=== PATIENT | male | born 1930 | race Caucasian/White ===

== ENCOUNTER 2018-05-18 20:03 | Inpatient (IN) | payer MEDICARE, MEDICAID ==
[2018-05-18] MEDS ORDERED: Vancomycin HCl 1.5 GM in Sodium Chloride 0.9% 250 ML 300 ML IVPB SCH (20:45)
[2018-05-18] MEDS ORDERED: Azithromycin 500 MG VIAL ONE (20:56)
[2018-05-18 20:57] LABS: Lactic Acid 2.7 mmol/L (0.5-2.2)
[2018-05-18] MEDS ORDERED: Cefepime 2 GM in Sodium Chloride 0.9% 100 ML IVPB SCH (21:00)
[2018-05-18] MEDS ORDERED: Acetaminophen 325 MG TAB PO PRN (23:58)
--- NOTE | 2018-05-19 02:33 | HP ---
CHIEF COMPLAINT: Patient is a half-way resident who was sent for hypoxia and also worsening alte red mental status. HISTORY OF PRESENT ILLNESS: Patient is an 88-year-old male who is a DNR, who presents from a half-way with worsening mentation and hypoxia. Patient is unable to provide me with any history. All t he history is being extracted from the charts. Patient initially was taken to [facility] for possi ble sepsis. He was given breathing treatment and he was also given Levaquin and was transported here for further management. PAST MEDICAL HISTORY: He has a history of CHF, COPD, CVA, dementia, osteoarthritis, chronic kidney d isease, thrombocytopenia, melanoma, bilateral broken hips at different times, hypokalemia, chronic pa in, deconditioning, unsteady gait, anxiety and depression. PAST SURGICAL HISTORY: He has a pacemaker. He has had a left hip surgery. He has had orthopedic sheriff rgery, he has left hip ORIF, pacemaker placement. SOCIAL HISTORY: Denied. No history of alcohol or drug use or smoking has been noted. ALLERGIES: He has multiple allergies to AGGRENOX, ASPIRIN, FENTANYL, NIACIN, PENICILLIN, VICODIN. REVIEW OF SYSTEMS: Unable to obtain. MEDICATIONS: He takes gabapentin 300 mg daily, Zoloft 100 mg daily, midodrine 5 mg daily, memantine unknown dose, oxybutynin 5 mg daily. PHYSICAL EXAMINATION: VITAL SIGNS: Upon coming to the ER, temperature of 99.0, his pulse is 93, blood pressure of 91/83, o xygen was 96. GENERAL: He is easily arousable, but not oriented x3 at all. CARDIOVASCULAR: S1, S2 present. No murmurs, rubs, or gallops. LUNGS: He has got mild rhonchi bilaterally. ABDOMEN: Bowel sounds are present x2. Unable to appreciate any reproducible pain. Patient had no g rimace on palpating the abdomen. EXTREMITIES: No edema. Pedal pulses are present x2. SKIN: No abrasion noted. NEUROLOGICAL: Patient is not easily arousable, but not oriented at all. LABORATORY DATA: Are as of the following WBCs of 13.9, hemoglobin of 13.3, hematocrit 40.5, platelet s of 111. Chemistry: He has a sodium of 147, potassium of 3.2, chloride of 111. His bicarbonate is 20 and his anion gap is 19. His creatinine is 1.86. Total bilirubin is 1.3. Lactic acid initially was 4 now is 2.7. He also had a chest x-ray, which indicated possible free intraperitoneal air vers us loop of bowel beneath the right hemidiaphragm. CT abdomen and pelvis was also done, which indicat ed that he does have a small segmental area of focal small bowel dilation; however, an extensive colo tushar diverticulosis, but no evidence of free intraperitoneal air and he has numerous small nonobstruct ing urinary calices, no evidence of diverticulitis was noted. There were some dilated small bowel in his right lower quadrant of the abdomen. ASSESSMENT AND PLAN: Patient is a very pleasant 88-year-old male who presents to the hospital with h ypoxia and altered mental status. 1. Sepsis. Chest x-ray possibly has indicate some pulmonary vascular congestion and appears a littl e bit possible infiltrate on the right lower, unable to appreciate the left lower lung area. Also, u rinalysis indicated which appears to be mild urinary tract infection, leukocytosis or small. No squa mous epithelial cells. WBCs were between 4-6. We will continue IV hydration gently. Patient is a h igh risk for worsening pulmonary vascular congestion. We will be gentle also we will start patient o n broad spectrum antibiotics, will renally dose it, also patient's code status is DNR. 2. We will get PT and OT to see the patient. 3. Elevated leukocytosis, this could be secondary to his underlying pneumonia or urinary tract infec tion. We will continue to monitor. 4. Hypokalemia. We will replace potassium. 5. Hypernatremia, this is most likely due to either dehydration. We will start patient on some D5 w ater with some sodium chloride, given his low blood pressure. 6. Lactic acidosis. This most likely secondary to his underlying pneumonia, we will continue to mon itor.
[2018-05-19 05:15] LABS: Anion Gap 10 mmol/L (10-20); BUN (Urea Nitrogen) 31 mg/dL (8.4-25.7); Calc. Creatinine Clearance 32 mL/min (70-130); Calcium 8.6 mg/dL (7.8-10.44); Carbon Dioxide 21 mmol/L (23-31); Chloride 118 mmol/L (98-107); Estimated GFR-MDRD 50; Glucose 147 mg/dL (83-110); Potassium 3.8 mmol/L (3.5-5.1); Sodium 145 mmol/L (136-145)
[2018-05-19 06:30] LABS: #Lymphocytes 0.7 thou/uL (1.20-3.40); #Monocytes 0.6 thou/uL (0.11-0.59); #Neutrophils 7.6 thou/uL (1.40-6.50); %Basophils 0.2 % (0.0-1.0); %Eosinophils 0.1 % (0.0-10.0); %Lymphocytes 7.9 % (21.0-51.0); %Monocytes 6.7 % (0.0-10.0); %Neutrophils 85.2 % (42.0-75.0); Mean Corpuscular HGB CONC 33.3 g/dL (32.0-36.0); Mean Corpuscular Hemoglobin 32.3 pg (27.0-31.0); Mean Platelet Volume 9.4 fL (7.4-10.4); Platelet Count 93 thou/uL (130-400); RBC Distribution Width 12.8 % (11.5-14.5); Red Blood Cell (RBC) Count 3.71 mill/uL (4.70-6.10)
[2018-05-19] MEDS ORDERED: hydrALAZINE 20 MG/ML VIAL SLOW IVP SCH (08:15)
[2018-05-19] MEDS: Heparin 5,000 UNITS/ML VIAL SC SCH ×3 (08:31→20:22)
--- NOTE | 2018-05-19 13:18 | PDOC.PN ---
- Subjective Encounter Start Date: 05/19/18 Encounter Start Time: 09:45 -: old records requested/rev Pt seen and examined, chart reviewed i its entirety. this is my first visit with this patient Follow up for Aspiration pneumonia, severe spsis, dementia. no family currently at bedside. Pt aphasic and demented. No acute events overnight, afevrile. thirsty. Speech Rx saw earlier, coughed after every cinsistency, recommended NPO today, re-eval tomorow ROS not obtianable - Objective Resuscitation Status: Resuscitation Status FULL:Full Resuscitation MAR Reviewed: Yes Vital Signs & Weight: Vital Signs (12 hours) Temp Pulse Resp BP BP Pulse Ox 05/19/18 11:11 98.2 F 62 22 H 125/74 05/19/18 09:25 66 141/72 H 05/19/18 08:28 61 215/95 H 05/19/18 08:00 97.8 F 61 20 215/95 H 92 L 05/19/18 04:41 98.0 F 61 20 92 L 05/19/18 04:00 98.0 F 61 20 140/73 93 L 05/19/18 01:59 98.2 F 83 24 H 164/79 H 92 L Weight Admit Weight 132 lb Weight 132 lb I&O: 05/18/18 05/19/18 05/20/18 06:59 06:59 06:59 Output Total 200 Balance -200 Result Diagrams: 05/19/18 04:45 05/19/18 04:45 Radiology Reviewed by me: Yes EKG Reviewed by me: Yes Phys Exam - Physical Examination Constitutional: NAD HEENT: PERRLA, moist MMs, sclera anicteric, oral pharynx no lesions Neck: no nodes, no JVD, supple, full ROM Respiratory: no wheezing, no rales, no rhonchi, clear to auscultation bilateral Cardiovascular: RRR, no significant murmur, no rub Gastrointestinal: soft, non-tender, no distention, positive bowel sounds Musculoskeletal: no edema Neurological: non-focal Lymphatic: no nodes Psychiatric: normal affect Skin: no rash, normal turgor, cap refill <2 seconds Dx/Plan (1) Healthcare associated bacterial pneumonia Code(s): J15.9 - UNSPECIFIED BACTERIAL PNEUMONIA Status: Acute Comment: Clinda, Cefepime, Levoflox, repeat CXR in AM (2) Dysphagia Code(s): R13.10 - DYSPHAGIA, UNSPECIFIED Status: Acute Qualifiers: Dysphagia type: unspecified Qualified Code(s): R13.10 - Dysphagia, unspecified Comment: per ST, NPO now, recheck in AM. (3) Aspiration into airway Code(s): T17.908A - UNSP FB IN RESP TRACT, PART UNSP CAUSING OTH INJURY, INIT Status: Acute Qualifiers: Encounter type: initial encounter Qualified Code(s): T17.908A - Unspecified foreign body in respiratory tract, part unspecified causing other injury, initial encounter (4) Parkinson's disease Code(s): G20 - PARKINSON'S DISEASE Status: Chronic (5) Dementia Code(s): F03.90 - UNSPECIFIED DEMENTIA WITHOUT BEHAVIORAL DISTURBANCE Status: Chronic Qualifiers: Dementia type: Alzheimer's disease Alzheimer's disease onset: unspecified onset Dementia behavioral disturbance: without behavioral disturbance Qualified Code(s): G30.9 - Alzheimer's disease, unspecified; F02.80 - Dementia in other diseases classified elsewhere without behavioral disturbance; F02.80 - Dementia in other diseases classified elsewhere without behavioral disturbance; F02.80 - Dementia in other diseases classified elsewhere without behavioral disturbance (6) Chronic kidney disease, stage III (moderate) Status: Chronic - Plan cont current plan of care, continue antibiotics, PT/OT, speech therapy, DVT proph w/lovenox * .
--- NOTE | 2018-05-19 13:24 | PDOC.EVN ---
Event Note - Event Note Event Note: Met with family from 12:20-12:42. Step daughter with non-medical POA, step-son from [place], brother in law and his non-related present. joined by pt grand-daugter later. Discussed code status, pt DNR at OR, discussed currnet disease process and prognosis, reocmmended PC eval. Discussed dysphagia. Pt is DNR/DNI, no shocks and no feeding tubes. plan to return to OR when treatment here complete. biological children X 3 in the [facility] area and barely involved, PT Step daughter present has DPOA but not medical Advanced care planning discussed for 22 minutes
[2018-05-19 13:47] LABS: Lactic Acid 0.7 mmol/L (0.5-2.2)
[2018-05-19] MEDS: Cefepime 1 GM in Sodium Chloride 0.9% 100 ML IVPB SCH (20:22)
[2018-05-19] MEDS ORDERED: Vancomycin HCl 750 MG in Sodium Chloride 0.9% 250 ML 250 ML IVPB SCH (23:00)
[2018-05-19] MEDS ORDERED: Dextrose 5 % And 0.9 % NaCl 1,000 ML IV SCH (23:15)
[2018-05-20 05:43] LABS: Anion Gap 14 mmol/L (10-20); BUN (Urea Nitrogen) 30 mg/dL (8.4-25.7); Calc. Creatinine Clearance 36 mL/min (70-130); Calcium 9.1 mg/dL (7.8-10.44); Carbon Dioxide 19 mmol/L (23-31); Chloride 118 mmol/L (98-107); Estimated GFR-MDRD 56; Glucose 111 mg/dL (83-110); Potassium 3.8 mmol/L (3.5-5.1); Sodium 147 mmol/L (136-145)
[2018-05-20 05:54] LABS: #Eosinphils 0.1 thou/uL (0.0-0.7); #Lymphocytes 1.4 thou/uL (1.20-3.40); #Monocytes 0.7 thou/uL (0.11-0.59); #Neutrophils 7.8 thou/uL (1.40-6.50); %Basophils 0.2 % (0.0-1.0); %Eosinophils 0.5 % (0.0-10.0); %Lymphocytes 13.9 % (21.0-51.0); %Monocytes 7.1 % (0.0-10.0); %Neutrophils 78.3 % (42.0-75.0); Hemoglobin 13.2 g/dL (14.0-18.0); Mean Corpuscular Hemoglobin 32.5 pg (27.0-31.0); Mean Corpuscular Volume 95.6 fL (78.0-98.0); Mean Platelet Volume 8.5 fL (7.4-10.4); Platelet Count 119 thou/uL (130-400); RBC Distribution Width 12.5 % (11.5-14.5); Red Blood Cell (RBC) Count 4.08 mill/uL (4.70-6.10)
[2018-05-20] MEDS ORDERED: Haloperidol Lactate 5 MG/ML VIAL IM SCH (11:15)
[2018-05-20] MEDS: Heparin 5,000 UNITS/ML VIAL SC SCH (12:48)
--- NOTE | 2018-05-20 14:00 | PDOC.PN ---
- Subjective Encounter Start Date: 05/20/18 Encounter Start Time: 13:58 Subjective: pt agitated and trying to get OOB.RN & tech at bedside -: Pt confused and mumbling incoherently - Objective Resuscitation Status: Resuscitation Status DNR:Do Not Resuscitate MAR Reviewed: Yes Vital Signs & Weight: Vital Signs (12 hours) Temp Pulse Pulse Pulse Resp BP BP 05/20/18 09:54 61 63 171/99 H 176/75 H 05/20/18 07:15 98.4 F 58 L 20 05/20/18 04:00 96.7 F L 60 26 H BP Pulse Ox 05/20/18 09:54 05/20/18 07:15 126/72 94 L 05/20/18 04:00 172/80 H 96 Weight Admit Weight 132 lb Weight 131 lb 11.2 oz I&O: 05/19/18 05/20/18 05/21/18 06:59 06:59 06:59 Intake Total 515 Output Total 1500 Balance -985 Result Diagrams: 05/20/18 05:20 05/21/18 04:03 Additional Labs: Microbiology 05/18/18 17:00 Venous blood - Left Arm Blood Culture - Preliminary Specimen has been received and culture in progress. No Growth to date. 05/18/18 16:50 Venous blood - Right Arm Blood Culture - Preliminary Specimen has been received and culture in progress. No Growth to date. labs reviewed Phys Exam - Physical Examination agitated HEENT: sclera anicteric, oral pharynx no lesions dry mucosa Neck: no nodes, no JVD Respiratory: no wheezing, no rales, no rhonchi Cardiovascular: RRR, no significant murmur Gastrointestinal: soft, no distention, positive bowel sounds Musculoskeletal: no edema, pulses present Neurological: moves all 4 limbs Deviation from normal: agitated Skin: no rash Dx/Plan (1) Healthcare associated bacterial pneumonia Code(s): J15.9 - UNSPECIFIED BACTERIAL PNEUMONIA Status: Acute Comment: Clinda, Cefepime, Levoflox, (2) Hypernatremia Code(s): E87.0 - HYPEROSMOLALITY AND HYPERNATREMIA Status: Acute (3) Thrombocytopenia Code(s): D69.6 - THROMBOCYTOPENIA, UNSPECIFIED Status: Acute Plan: Hold heparin.follow (4) BUBBA (acute kidney injury) Code(s): N17.9 - ACUTE KIDNEY FAILURE, UNSPECIFIED Status: Acute (5) Dysphagia Code(s): R13.10 - DYSPHAGIA, UNSPECIFIED Status: Acute Qualifiers: Dysphagia type: unspecified Qualified Code(s): R13.10 - Dysphagia, unspecified Comment: jannet RICHMOND NPO now, recheck in AM. (6) Dementia Code(s): F03.90 - UNSPECIFIED DEMENTIA WITHOUT BEHAVIORAL DISTURBANCE Status: Chronic Qualifiers: Dementia type: Alzheimer's disease Alzheimer's disease onset: unspecified onset Dementia behavioral disturbance: without behavioral disturbance Qualified Code(s): G30.9 - Alzheimer's disease, unspecified; F02.80 - Dementia in other diseases classified elsewhere without behavioral disturbance; F02.80 - Dementia in other diseases classified elsewhere without behavioral disturbance; F02.80 - Dementia in other diseases classified elsewhere without behavioral disturbance (7) Parkinson's disease Code(s): G20 - PARKINSON'S DISEASE Status: Chronic (8) Chronic kidney disease, stage III (moderate) Status: Chronic (9) HTN (hypertension) Code(s): I10 - ESSENTIAL (PRIMARY) HYPERTENSION Status: Chronic Comment: add PRN anti hypertensives. PO meds on hold - Plan continue antibiotics, PT/OT, incentive spirometry, DVT proph w/SCDs add PRN geodon for behavioral issues w dementia. 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 -: change to D5W as sodium higher today.recheck in am -: cont IV ABx. blood Cx neg so far-will follow. * .platelet counts better. cont ot monitor. not on any heparin rpoducts. * monito rrenal Fx. * PT DNR/DNI. Will transfer to medical floor Review of Systems - Review of Systems Other: can not be obtained due to dementia and agitation - Medications/Allergies Allergies/Adverse Reactions: Allergies Allergy/AdvReac Type Severity Reaction Status Date / Time aspirin [From Aggrenox] Allergy Verified 05/02/14 01:52 dipyridamole [From Aggrenox] Allergy Verified 05/02/14 01:52 fentanyl Allergy Verified 05/02/14 01:52 hydrocodone bitartrate Allergy Verified 05/02/14 01:52 [From Vicodin] niacin Allergy Verified 05/02/14 01:52 Penicillins Allergy Verified 05/02/14 01:52 Medications: Current Medications Acetaminophen (Tylenol) 650 mg PO Q4H PRN PRN Reason: Headache/Fever or Pain Heparin Sodium (Porcine) (Heparin) 5,000 units SC TID [facility] Last Admin: 05/20/18 12:48 Dose: Not Given Hydralazine HCl (Apresoline) 5 mg SLOW IVP Q4H PRN PRN Reason: SBP>160 Vancomycin HCl 750 mg/ Sodium (Chloride) 250 mls @ 250 mls/hr IVPB Q24HR@2300 [facility] Last Admin: 05/19/18 23:30 Dose: 250 mls Cefepime HCl 1 gm/ Sodium (Chloride) 100 mls @ 200 mls/hr IVPB Q24HR@2100 [facility] Last Admin: 05/19/18 20:22 Dose: 100 mls Dextrose/Water (D5w) 1,000 mls @ 50 mls/hr IV .Q20H [facility] Miscellaneous Medication (Pharmacy To Dose) 0 each IVPB PRN PRN PRN Reason: [facility] Pharmacy to Dose Sodium Chloride (Flush - Normal Saline) 10 ml IVF Q12HR [facility] Last Admin: 05/19/18 20:22 Dose: 10 ml Sodium Chloride (Flush - Normal Saline) 10 ml IVF PRN PRN PRN Reason: Saline Flush Ziprasidone (Geodon) 10 mg IM Q8H PRN PRN Reason: Agitation
[2018-05-20] MEDS: Dextrose 5% in Water 1,000 ML IV SCH ×2 (14:46→23:00)
[2018-05-20] MEDS: Ziprasidone 20 MG VIAL IM PRN (17:57)
[2018-05-20] MEDS: Sterile Water 10 ML VIAL FS PRN (17:58)
[2018-05-20] MEDS: Cefepime 1 GM in Sodium Chloride 0.9% 100 ML IVPB SCH (21:05)
[2018-05-20 22:30] LABS: Vancomycin, Trough 10.1 ug/mL
[2018-05-20] MEDS: Vancomycin HCl 1 GM in Premix Bag 1 BAG IVPB SCH (22:49)
[2018-05-21] MEDS: hydrALAZINE 20 MG/ML VIAL SLOW IVP PRN ×2 (00:30→05:51)
[2018-05-21 04:56] LABS: Anion Gap 15 mmol/L (10-20); BUN (Urea Nitrogen) 21 mg/dL (8.4-25.7); Calc. Creatinine Clearance 46 mL/min (70-130); Calcium 8.9 mg/dL (7.8-10.44); Carbon Dioxide 18 mmol/L (23-31); Chloride 115 mmol/L (98-107); Estimated GFR-MDRD 75; Glucose 115 mg/dL (83-110); Potassium 3.7 mmol/L (3.5-5.1); Sodium 144 mmol/L (136-145)
--- NOTE | 2018-05-21 14:30 | PDOC.PN ---
- Subjective Encounter Start Date: 05/21/18 Encounter Start Time: 14:28 Subjective: pt asleep and does not aprticipate in interview -: care discussed w Step daughter and her at bedside - Objective Resuscitation Status: Resuscitation Status DNR:Do Not Resuscitate MAR Reviewed: Yes Vital Signs & Weight: Vital Signs (12 hours) Temp Pulse Resp BP BP Pulse Ox 05/21/18 08:00 98.1 F 60 16 169/83 H 93 L 05/21/18 05:51 60 169/83 H 05/21/18 04:10 98.1 F 60 18 169/83 H 93 L Weight Admit Weight 132 lb Weight 131 lb 11.2 oz I&O: 05/20/18 05/21/18 05/22/18 06:59 06:59 06:59 Intake Total 515 700 Output Total 1500 950 Balance -985 -250 Result Diagrams: 05/20/18 05:20 05/21/18 04:03 Additional Labs: Microbiology 05/18/18 17:00 Venous blood - Left Arm Blood Culture - Preliminary NO GROWTH AT 48 HOURS 05/18/18 16:50 Venous blood - Right Arm Blood Culture - Preliminary NO GROWTH AT 48 HOURS labs reviewed Phys Exam - Physical Examination Constitutional: NAD asleep HEENT: PERRLA, moist MMs, sclera anicteric, oral pharynx no lesions Neck: no nodes, no JVD, supple, full ROM Respiratory: no wheezing, no rales, no rhonchi Cardiovascular: RRR, no significant murmur Gastrointestinal: soft, no distention, positive bowel sounds Musculoskeletal: no edema, pulses present Neurological: moves all 4 limbs Skin: no rash Dx/Plan (1) Healthcare associated bacterial pneumonia Code(s): J15.9 - UNSPECIFIED BACTERIAL PNEUMONIA Status: Acute Comment: Clinda, Cefepime, Levoflox, (2) Hypernatremia Code(s): E87.0 - HYPEROSMOLALITY AND HYPERNATREMIA Status: Acute Comment: improved with D5w (3) Thrombocytopenia Code(s): D69.6 - THROMBOCYTOPENIA, UNSPECIFIED Status: Acute Comment: heparin on hold (4) BUBBA (acute kidney injury) Code(s): N17.9 - ACUTE KIDNEY FAILURE, UNSPECIFIED Status: Resolved (5) Dysphagia Code(s): R13.10 - DYSPHAGIA, UNSPECIFIED Status: Acute Qualifiers: Dysphagia type: unspecified Qualified Code(s): R13.10 - Dysphagia, unspecified Comment: per SEEMA RICHMOND now, recheck in AM. (6) Dementia Code(s): F03.90 - UNSPECIFIED DEMENTIA WITHOUT BEHAVIORAL DISTURBANCE Status: Chronic Qualifiers: Dementia type: Alzheimer's disease Alzheimer's disease onset: unspecified onset Dementia behavioral disturbance: without behavioral disturbance Qualified Code(s): G30.9 - Alzheimer's disease, unspecified; F02.80 - Dementia in other diseases classified elsewhere without behavioral disturbance; F02.80 - Dementia in other diseases classified elsewhere without behavioral disturbance; F02.80 - Dementia in other diseases classified elsewhere without behavioral disturbance (7) Parkinson's disease Code(s): G20 - PARKINSON'S DISEASE Status: Chronic (8) Chronic kidney disease, stage III (moderate) Status: Chronic (9) HTN (hypertension) Code(s): I10 - ESSENTIAL (PRIMARY) HYPERTENSION Status: Chronic Comment: add PRN anti hypertensives. PO meds on hold - Plan plan discussed w/ family, continue antibiotics, PT/OT, out of bed/ambulate, DVT proph w/SCDs PCT helping with locating family.No MPOA appointed -: Pt cleared by client success director for diet w risk of aspiration.will wait for family -: no PEG for now as pt very poor candidate for same. -: cont empiric ABx. follow cx .negative for now -: change IVF to D% 1/2 NS to prevent hyponatremia. * .am labs * * SCDs * BP better controlled. Po meds on hold. monitor * add TD Nitro paste for high BP Review of Systems - Review of Systems Other: can not be obtained due to dementia - Medications/Allergies Allergies/Adverse Reactions: Allergies Allergy/AdvReac Type Severity Reaction Status Date / Time aspirin [From Aggrenox] Allergy Verified 05/02/14 01:52 dipyridamole [From Aggrenox] Allergy Verified 05/02/14 01:52 fentanyl Allergy Verified 05/02/14 01:52 hydrocodone bitartrate Allergy Verified 05/02/14 01:52 [From Vicodin] niacin Allergy Verified 05/02/14 01:52 Penicillins Allergy Verified 05/02/14 01:52 Medications: Current Medications Acetaminophen (Tylenol) 650 mg PO Q4H PRN PRN Reason: Headache/Fever or Pain Hydralazine HCl (Apresoline) 5 mg SLOW IVP Q4H PRN PRN Reason: SBP>160 Last Admin: 05/21/18 05:51 Dose: 5 mg Cefepime HCl 1 gm/ Sodium (Chloride) 100 mls @ 200 mls/hr IVPB Q24HR@2100 [facility] Last Admin: 05/20/18 21:05 Dose: 100 mls Vancomycin HCl 1 gm/ Device 200 mls @ 200 mls/hr IVPB Q24HR@2300 [facility] Last Admin: 05/20/18 22:49 Dose: 200 mls Dextrose/Sodium Chloride (D5 1/2 Ns) 1,000 mls @ 75 mls/hr IV .[id number] [facility] Miscellaneous Medication (Pharmacy To Dose) 0 each IVPB PRN PRN PRN Reason: [facility] Pharmacy to Dose Sodium Chloride (Flush - Normal Saline) 10 ml IVF Q12HR [facility] Last Admin: 05/21/18 10:18 Dose: Not Given Sodium Chloride (Flush - Normal Saline) 10 ml IVF PRN PRN PRN Reason: Saline Flush Sterile Water (Water For Injection) 10 ml FS Q8H PRN PRN Reason: TO RECONSTITUTE ZIPRASIDONE Last Admin: 05/20/18 17:58 Dose: 10 ml Ziprasidone (Geodon) 10 mg IM Q8H PRN PRN Reason: Agitation Last Admin: 05/20/18 17:57 Dose: 10 mg
[2018-05-21] MEDS ORDERED: Nitroglycerin 2% Ointment 1 INCH/1 GM Packet TOP SCH (14:45)
[2018-05-21] MEDS: Dextrose 5 %-0.45 % NaCl 1,000 ML IV SCH (15:38)
[2018-05-21] MEDS: Cefepime 1 GM in Sodium Chloride 0.9% 100 ML IVPB SCH (20:10)
[2018-05-21] MEDS: Nitroglycerin 2% Ointment 1 INCH/1 GM Packet TOP SCH (20:18)
[2018-05-21] MEDS: Vancomycin HCl 1 GM in Premix Bag 1 BAG IVPB SCH (23:15)
[2018-05-22 04:25] LABS: #Eosinphils 0.4 thou/uL (0.0-0.7); #Lymphocytes 1.9 thou/uL (1.20-3.40); #Monocytes 0.9 thou/uL (0.11-0.59); #Neutrophils 7.9 thou/uL (1.40-6.50); %Basophils 0.1 % (0.0-1.0); %Eosinophils 3.6 % (0.0-10.0); %Lymphocytes 17.1 % (21.0-51.0); %Monocytes 8.2 % (0.0-10.0); Hemoglobin 14.8 g/dL (14.0-18.0); Mean Corpuscular HGB CONC 34.3 g/dL (32.0-36.0); Mean Corpuscular Hemoglobin 32.6 pg (27.0-31.0); Mean Platelet Volume 9.2 fL (7.4-10.4); Platelet Count 135 thou/uL (130-400); RBC Distribution Width 12.3 % (11.5-14.5); Red Blood Cell (RBC) Count 4.54 mill/uL (4.70-6.10); White Blood Cell (WBC) Count 11.1 thou/uL (4.8-10.8)
[2018-05-22 04:39] LABS: Anion Gap 13 mmol/L (10-20); BUN (Urea Nitrogen) 17 mg/dL (8.4-25.7); Calc. Creatinine Clearance 47 mL/min (70-130); Calcium 8.9 mg/dL (7.8-10.44); Carbon Dioxide 17 mmol/L (23-31); Chloride 113 mmol/L (98-107); Estimated GFR-MDRD 76; Glucose 108 mg/dL (83-110); Potassium 4.3 mmol/L (3.5-5.1); Sodium 139 mmol/L (136-145)
[2018-05-22] MEDS: Dextrose 5 %-0.45 % NaCl 1,000 ML IV SCH ×2 (06:04→17:16)
[2018-05-22] MEDS: Nitroglycerin 2% Ointment 1 INCH/1 GM Packet TOP SCH ×2 (07:41→20:14)
[2018-05-22 12:35] VITALS: BMI 18.2
--- NOTE | 2018-05-22 15:39 | PDOC.PN ---
- Subjective Encounter Start Date: 05/22/18 Encounter Start Time: 15:37 Subjective: no new events. pt calm and awake this morning/ -: sitter at bedside - Objective Resuscitation Status: Resuscitation Status DNR:Do Not Resuscitate MAR Reviewed: Yes Vital Signs & Weight: Vital Signs (12 hours) Temp Pulse Resp BP BP Pulse Ox 05/22/18 08:00 97.8 F 61 18 92 L 05/22/18 07:51 97.8 F 61 18 170/84 H 92 L 05/22/18 04:00 98.7 F 88 20 148/97 H 94 L Weight Admit Weight 132 lb Weight 119 lb 14.4 oz I&O: 05/21/18 05/22/18 05/23/18 06:59 06:59 06:59 Intake Total 700 900 Output Total 950 200 Balance -250 700 Result Diagrams: 05/22/18 03:48 05/22/18 03:48 Additional Labs: Microbiology 05/18/18 17:00 Venous blood - Left Arm Blood Culture - Preliminary NO GROWTH AT 48 HOURS 05/18/18 16:50 Venous blood - Right Arm Blood Culture - Preliminary NO GROWTH AT 48 HOURS labs reviewed Phys Exam - Physical Examination Constitutional: NAD HEENT: PERRLA, moist MMs, sclera anicteric, oral pharynx no lesions Neck: no nodes, no JVD, supple, full ROM Respiratory: no wheezing, no rales, no rhonchi, clear to auscultation bilateral Cardiovascular: RRR, no significant murmur Gastrointestinal: soft, non-tender, no distention, positive bowel sounds Musculoskeletal: no edema, pulses present Neurological: non-focal, normal sensation, moves all 4 limbs Skin: no rash Dx/Plan (1) Healthcare associated bacterial pneumonia Code(s): J15.9 - UNSPECIFIED BACTERIAL PNEUMONIA Status: Acute Comment: Clinda, Cefepime, Levoflox, (2) Hypernatremia Code(s): E87.0 - HYPEROSMOLALITY AND HYPERNATREMIA Status: Acute Comment: improved with D5w (3) Thrombocytopenia Code(s): D69.6 - THROMBOCYTOPENIA, UNSPECIFIED Status: Acute Comment: heparin on hold (4) BUBBA (acute kidney injury) Code(s): N17.9 - ACUTE KIDNEY FAILURE, UNSPECIFIED Status: Resolved (5) Dysphagia Code(s): R13.10 - DYSPHAGIA, UNSPECIFIED Status: Acute Qualifiers: Dysphagia type: unspecified Qualified Code(s): R13.10 - Dysphagia, unspecified Comment: SEEMA Stanford now, recheck in AM. (6) Dementia Code(s): F03.90 - UNSPECIFIED DEMENTIA WITHOUT BEHAVIORAL DISTURBANCE Status: Chronic Qualifiers: Dementia type: Alzheimer's disease Alzheimer's disease onset: unspecified onset Dementia behavioral disturbance: without behavioral disturbance Qualified Code(s): G30.9 - Alzheimer's disease, unspecified; F02.80 - Dementia in other diseases classified elsewhere without behavioral disturbance; F02.80 - Dementia in other diseases classified elsewhere without behavioral disturbance; F02.80 - Dementia in other diseases classified elsewhere without behavioral disturbance (7) Parkinson's disease Code(s): G20 - PARKINSON'S DISEASE Status: Chronic (8) Chronic kidney disease, stage III (moderate) Status: Chronic (9) HTN (hypertension) Code(s): I10 - ESSENTIAL (PRIMARY) HYPERTENSION Status: Chronic Comment: add PRN anti hypertensives. PO meds on hold - Plan continue antibiotics, PT/OT, out of bed/ambulate, DVT proph w/SCDs start diet w precautions.monitor -: PCT notes reviewed. -: lewis Leyva back to NH in am -: Hd stable * . Review of Systems - Review of Systems Constitutional: negative: fever, chills, sweats, weakness, malaise, other Respiratory: negative: Cough, Dry, Shortness of Breath, Hemoptysis, SOB with Excertion, Pleuritic Pain, Sputum, Wheezing Cardiovascular: negative: chest pain, palpitations, orthopnea, paroxysmal nocturnal dyspnea, edema, light headedness, other Gastrointestinal: negative: Nausea, Vomiting, Abdominal Pain, Diarrhea, Constipation, Melena, Hematochezia, Other Genitourinary: negative: Dysuria, Frequency, Incontinence, Hematuria, Retention , Other Musculoskeletal: negative: Neck Pain, Shoulder Pain, Arm Pain, Back Pain, Hand Pain, Leg Pain, Foot Pain, Other Skin: negative: Rash, Lesions, Patrice, Bruising, Other Neurological: negative: Weakness, Numbness, Incoordination, Change in Speech, Confusion, Seizures, Other - Medications/Allergies Allergies/Adverse Reactions: Allergies Allergy/AdvReac Type Severity Reaction Status Date / Time aspirin [From Aggrenox] Allergy Verified 05/02/14 01:52 dipyridamole [From Aggrenox] Allergy Verified 05/02/14 01:52 fentanyl Allergy Verified 05/02/14 01:52 hydrocodone bitartrate Allergy Verified 05/02/14 01:52 [From Vicodin] niacin Allergy Verified 05/02/14 01:52 Penicillins Allergy Verified 05/02/14 01:52 Medications: Current Medications Acetaminophen (Tylenol) 650 mg PO Q4H PRN PRN Reason: Headache/Fever or Pain Hydralazine HCl (Apresoline) 5 mg SLOW IVP Q4H PRN PRN Reason: SBP>160 Last Admin: 05/21/18 05:51 Dose: 5 mg Cefepime HCl 1 gm/ Sodium (Chloride) 100 mls @ 200 mls/hr IVPB Q24HR@2100 [facility] Last Admin: 05/21/18 20:10 Dose: 100 mls Vancomycin HCl 1 gm/ Device 200 mls @ 200 mls/hr IVPB Q24HR@2300 [facility] Last Admin: 05/21/18 23:15 Dose: 200 mls Dextrose/Sodium Chloride (D5 1/2 Ns) 1,000 mls @ 75 mls/hr IV .[id number] [facility] Last Admin: 05/22/18 06:04 Dose: 1,000 mls Miscellaneous Medication (Pharmacy To Dose) 0 each IVPB PRN PRN PRN Reason: [facility] Pharmacy to Dose Nitroglycerin (Nitro-Bid 2% Ointment) 0.5 inch TOP BID [facility] Last Admin: 05/22/18 07:41 Dose: 0.5 inch Sodium Chloride (Flush - Normal Saline) 10 ml IVF Q12HR [facility] Last Admin: 05/22/18 07:42 Dose: Not Given Sodium Chloride (Flush - Normal Saline) 10 ml IVF PRN PRN PRN Reason: Saline Flush Sterile Water (Water For Injection) 10 ml FS Q8H PRN PRN Reason: TO RECONSTITUTE ZIPRASIDONE Last Admin: 05/20/18 17:58 Dose: 10 ml Ziprasidone (Geodon) 10 mg IM Q8H PRN PRN Reason: Agitation Last Admin: 05/20/18 17:57 Dose: 10 mg
[2018-05-22] MEDS: Ziprasidone 20 MG VIAL IM PRN (16:02)
[2018-05-22] MEDS: Sterile Water 10 ML VIAL FS PRN (16:03)
[2018-05-22] MEDS: Gabapentin 100 MG CAP PO SCH (20:13)
[2018-05-22] MEDS: Cefepime 1 GM in Sodium Chloride 0.9% 100 ML IVPB SCH (20:15)
[2018-05-22] MEDS: Oxybutynin 5 MG TAB PO SCH (21:52)
[2018-05-22 22:33] LABS: Vancomycin, Trough 11.6 ug/mL
[2018-05-22] MEDS: Vancomycin HCl 1 GM in Premix Bag 1 BAG IVPB SCH (22:51)
[2018-05-23 04:37] LABS: Anion Gap 13 mmol/L (10-20); BUN (Urea Nitrogen) 15 mg/dL (8.4-25.7); Calc. Creatinine Clearance 46 mL/min (70-130); Carbon Dioxide 22 mmol/L (23-31); Chloride 112 mmol/L (98-107); Estimated GFR-MDRD 83; Glucose 87 mg/dL (83-110); Potassium 3.6 mmol/L (3.5-5.1); Sodium 143 mmol/L (136-145)
[2018-05-23] MEDS: Dextrose 5 %-0.45 % NaCl 1,000 ML IV SCH (05:40)
[2018-05-23] MEDS: Ferrous Sulfate 325 MG TAB PO SCH ×2 (08:56→09:08)
[2018-05-23] MEDS: Fish Oil 1,000 MG CAP PO SCH ×2 (08:57→09:09)
[2018-05-23] MEDS: Multivitamin W/ Minerals 1 TAB PO SCH ×2 (08:57→09:09)
[2018-05-23] MEDS: Nitroglycerin 2% Ointment 1 INCH/1 GM Packet TOP SCH (08:57)
[2018-05-23] MEDS ORDERED: DONEPEZIL HCL PO SCH (09:00)
[2018-05-23] MEDS ORDERED: MEMANTINE HCL PO SCH (09:00)
[2018-05-23] MEDS ORDERED: Midodrine HCl 5 MG TAB PO SCH (09:00)
--- NOTE | 2018-05-23 16:31 | PDOC.PN ---
- Subjective Encounter Start Date: 05/23/18 Encounter Start Time: 16:29 Subjective: no new events. able to eat some but not much -: no agitation noted -: care discussed w family at bedside - Objective Resuscitation Status: Resuscitation Status DNR:Do Not Resuscitate MAR Reviewed: Yes Vital Signs & Weight: Vital Signs (12 hours) Temp Pulse Resp BP Pulse Ox 05/23/18 12:00 97.4 F L 61 20 151/85 H 94 L 05/23/18 08:00 97.6 F 60 18 160/114 H 100 Weight Admit Weight 132 lb Weight 119 lb 14.4 oz I&O: 05/22/18 05/23/18 05/24/18 06:59 06:59 06:59 Intake Total 900 Output Total 200 250 Balance 700 -250 Result Diagrams: 05/22/18 03:48 05/23/18 04:03 Additional Labs: labs reviewed Microbiology 05/18/18 17:00 Venous blood - Left Arm Blood Culture - Preliminary NO GROWTH AT 48 HOURS 05/18/18 16:50 Venous blood - Right Arm Blood Culture - Preliminary NO GROWTH AT 48 HOURS Phys Exam - Physical Examination Constitutional: NAD awake and follow simple commands. mumbles words HEENT: PERRLA, moist MMs, sclera anicteric, oral pharynx no lesions Neck: no nodes, no JVD, supple, full ROM Respiratory: no wheezing, clear to auscultation bilateral Cardiovascular: RRR, no significant murmur Gastrointestinal: soft, non-tender, no distention, positive bowel sounds Musculoskeletal: no edema, pulses present Neurological: moves all 4 limbs Dx/Plan (1) Healthcare associated bacterial pneumonia Code(s): J15.9 - UNSPECIFIED BACTERIAL PNEUMONIA Status: Acute Comment: PO ABx now as he lost IV access (2) Hypernatremia Code(s): E87.0 - HYPEROSMOLALITY AND HYPERNATREMIA Status: Resolved Comment : improved with D5w (3) Thrombocytopenia Code(s): D69.6 - THROMBOCYTOPENIA, UNSPECIFIED Status: Resolved Comment: heparin on hold (4) BUBBA (acute kidney injury) Code(s): N17.9 - ACUTE KIDNEY FAILURE, UNSPECIFIED Status: Resolved (5) Dysphagia Code(s): R13.10 - DYSPHAGIA, UNSPECIFIED Status: Acute Qualifiers: Dysphagia type: unspecified Qualified Code(s): R13.10 - Dysphagia, unspecified Comment: On diet per [employer] for pleasure feeds (6) Dementia Code(s): F03.90 - UNSPECIFIED DEMENTIA WITHOUT BEHAVIORAL DISTURBANCE Status: Chronic Qualifiers: Dementia type: Alzheimer's disease Alzheimer's disease onset: unspecified onset Dementia behavioral disturbance: without behavioral disturbance Qualified Code(s): G30.9 - Alzheimer's disease, unspecified; F02.80 - Dementia in other diseases classified elsewhere without behavioral disturbance; F02.80 - Dementia in other diseases classified elsewhere without behavioral disturbance; F02.80 - Dementia in other diseases classified elsewhere without behavioral disturbance (7) Parkinson's disease Code(s): G20 - PARKINSON'S DISEASE Status: Chronic (8) Chronic kidney disease, stage III (moderate) Status: Chronic (9) HTN (hypertension) Code(s): I10 - ESSENTIAL (PRIMARY) HYPERTENSION Status: Chronic Comment: add PRN anti hypertensives. PO meds on hold - Plan PT/OT, respiratory therapy, incentive spirometry, DVT proph w/lovenox, DVT proph w/SCDs encourage PO intake.change Abx to PO. -: add ensure tid. -: SNIf when arranged. -: care discusseed w family in detail -: restart Lovenox for DVT prophylaxis as platelets better * . Review of Systems - Review of Systems Other: can not be obtained due to advanced dementia - Medications/Allergies Allergies/Adverse Reactions: Allergies Allergy/AdvReac Type Severity Reaction Status Date / Time aspirin [From Aggrenox] Allergy Verified 05/02/14 01:52 dipyridamole [From Aggrenox] Allergy Verified 05/02/14 01:52 fentanyl Allergy Verified 05/02/14 01:52 hydrocodone bitartrate Allergy Verified 05/02/14 01:52 [From Vicodin] niacin Allergy Verified 05/02/14 01:52 Penicillins Allergy Verified 05/02/14 01:52 Medications: Current Medications Acetaminophen (Tylenol) 650 mg PO Q4H PRN PRN Reason: Headache/Fever or Pain Ferrous Sulfate (Feosol) 325 mg PO DAILY [facility] Last Admin: 05/23/18 09:08 Dose: Not Given Gabapentin (Neurontin) 400 mg PO HS [facility] Last Admin: 05/22/18 20:13 Dose: 400 mg Hydralazine HCl (Apresoline) 5 mg SLOW IVP Q4H PRN PRN Reason: SBP>160 Last Admin: 05/21/18 05:51 Dose: 5 mg Cefepime HCl 1 gm/ Sodium (Chloride) 100 mls @ 200 mls/hr IVPB Q24HR@2100 [facility] Last Admin: 05/22/18 20:15 Dose: Not Given Vancomycin HCl 1 gm/ Device 200 mls @ 200 mls/hr IVPB Q24HR@2300 [facility] Last Admin: 05/22/18 22:51 Dose: Not Given Dextrose/Sodium Chloride (D5 1/2 Ns) 1,000 mls @ 75 mls/hr IV .[id number] [facility] Last Admin: 05/23/18 05:40 Dose: Not Given Iron/Minerals/Multivitamins (Theragran M) 1 tab PO DAILY [facility] Last Admin: 05/23/18 09:09 Dose: Not Given Levofloxacin (Levaquin) 500 mg PO 0600 [facility] Last Admin: 05/23/18 05:28 Dose: 500 mg Miscellaneous Medication (Pharmacy To Dose) 0 each IVPB PRN PRN PRN Reason: VANC Pharmacy to Dose Oxybutynin Chloride (Ditropan) 5 mg PO HS [facility] Last Admin: 05/22/18 21:52 Dose: 5 mg Sertraline HCl (Zoloft) 100 mg PO [facility] Last Admin: 05/22/18 20:14 Dose: 100 mg Sodium Chloride (Flush - Normal Saline) 10 ml IVF Q12HR [facility] Last Admin: 05/23/18 08:58 Dose: Not Given Sodium Chloride (Flush - Normal Saline) 10 ml IVF PRN PRN PRN Reason: Saline Flush Sterile Water (Water For Injection) 10 ml FS Q8H PRN PRN Reason: TO RECONSTITUTE ZIPRASIDONE Last Admin: 05/22/18 16:03 Dose: 10 ml Ziprasidone (Geodon) 10 mg IM Q8H PRN PRN Reason: Agitation Last Admin: 05/22/18 16:02 Dose: 10 mg
[2018-05-23] MEDS ORDERED: Enoxaparin Sodium 40 MG/0.4 ML SYRINGE SC SCH (16:45)
[2018-05-23] MEDS ORDERED: Sodium Chloride 0.9% 1,000 ML IV SCH (16:45)
[2018-05-23] MEDS: Gabapentin 100 MG CAP PO SCH (20:18)
[2018-05-23] MEDS: Oxybutynin 5 MG TAB PO SCH (20:25)
[2018-05-24 05:31] LABS: #Eosinphils 0.5 thou/uL (0.0-0.7); #Lymphocytes 1.8 thou/uL (1.20-3.40); #Monocytes 0.8 thou/uL (0.11-0.59); #Neutrophils 7.2 thou/uL (1.40-6.50); %Basophils 0.3 % (0.0-1.0); %Eosinophils 4.4 % (0.0-10.0); %Lymphocytes 17.8 % (21.0-51.0); %Monocytes 7.7 % (0.0-10.0); %Neutrophils 69.8 % (42.0-75.0); Hemoglobin 13.6 g/dL (14.0-18.0); Mean Corpuscular Hemoglobin 31.8 pg (27.0-31.0); Mean Corpuscular Volume 93.6 fL (78.0-98.0); Mean Platelet Volume 8.6 fL (7.4-10.4); Platelet Count 143 thou/uL (130-400); RBC Distribution Width 12.2 % (11.5-14.5); Red Blood Cell (RBC) Count 4.28 mill/uL (4.70-6.10); White Blood Cell (WBC) Count 10.3 thou/uL (4.8-10.8)
[2018-05-24 05:50] LABS: Anion Gap 14 mmol/L (10-20); BUN (Urea Nitrogen) 17 mg/dL (8.4-25.7); Calc. Creatinine Clearance 47 mL/min (70-130); Calcium 8.9 mg/dL (7.8-10.44); Carbon Dioxide 20 mmol/L (23-31); Chloride 110 mmol/L (98-107); Estimated GFR-MDRD 85; Glucose 77 mg/dL (83-110); Potassium 3.5 mmol/L (3.5-5.1); Sodium 140 mmol/L (136-145)
[2018-05-24] MEDS ORDERED: Levofloxacin 250 MG/10 ML PO SCH (06:00)
[2018-05-24] MEDS: Ferrous Sulfate 325 MG TAB PO SCH (08:31)
[2018-05-24] MEDS: Multivitamin W/ Minerals 1 TAB PO SCH (08:31)
[2018-05-24] MEDS: Enoxaparin Sodium 40 MG/0.4 ML SYRINGE SC SCH (08:32)
[2018-05-24] MEDS: Amlodipine 10 MG TAB PO SCH (08:32)
--- NOTE | 2018-05-24 14:39 | PDOC.PN ---
- Subjective Encounter Start Date: 05/24/18 Encounter Start Time: 14:37 Subjective: no new events. no changes. - Objective Resuscitation Status: Resuscitation Status DNR:Do Not Resuscitate MAR Reviewed: Yes Vital Signs & Weight: Vital Signs (12 hours) Temp Pulse Resp BP BP Pulse Ox 05/24/18 08:37 97.9 F 60 18 107/63 92 L 05/24/18 08:32 60 98/52 L Weight Admit Weight 132 lb Weight 119 lb 14.4 oz I&O: 05/23/18 05/24/18 05/25/18 06:59 06:59 06:59 Intake Total 440 Output Total 250 550 50 Balance -250 -110 -50 Result Diagrams: 05/24/18 03:54 05/24/18 03:54 Additional Labs: Microbiology 05/18/18 17:00 Venous blood - Left Arm Blood Culture - Final NO GROWTH IN 5 DAYS 05/18/18 16:50 Venous blood - Right Arm Blood Culture - Final NO GROWTH IN 5 DAYS labs reviewed Phys Exam - Physical Examination Constitutional: NAD awake and not follwoing commands HEENT: PERRLA, moist MMs, sclera anicteric, oral pharynx no lesions Neck: no nodes, no JVD Respiratory: no wheezing, no rales, no rhonchi, clear to auscultation bilateral Cardiovascular: RRR, no significant murmur Gastrointestinal: soft, non-tender, no distention, positive bowel sounds Musculoskeletal: no edema, pulses present Neurological: moves all 4 limbs Deviation from normal: dementia Dx/Plan (1) Healthcare associated bacterial pneumonia Code(s): J15.9 - UNSPECIFIED BACTERIAL PNEUMONIA Status: Acute Comment: PO ABx now as he lost IV access (2) Hypernatremia Code(s): E87.0 - HYPEROSMOLALITY AND HYPERNATREMIA Status: Resolved Comment : improved with D5w (3) Thrombocytopenia Code(s): D69.6 - THROMBOCYTOPENIA, UNSPECIFIED Status: Resolved Comment: resolved-restarted Prophylaxis w Lovenox (4) BUBBA (acute kidney injury) Code(s): N17.9 - ACUTE KIDNEY FAILURE, UNSPECIFIED Status: Resolved (5) Dysphagia Code(s): R13.10 - DYSPHAGIA, UNSPECIFIED Status: Acute Qualifiers: Dysphagia type: unspecified Qualified Code(s): R13.10 - Dysphagia, unspecified Comment: On diet per [employer] for pleasure feeds (6) Dementia Code(s): F03.90 - UNSPECIFIED DEMENTIA WITHOUT BEHAVIORAL DISTURBANCE Status: Chronic Qualifiers: Dementia type: Alzheimer's disease Alzheimer's disease onset: unspecified onset Dementia behavioral disturbance: without behavioral disturbance Qualified Code(s): G30.9 - Alzheimer's disease, unspecified; F02.80 - Dementia in other diseases classified elsewhere without behavioral disturbance; F02.80 - Dementia in other diseases classified elsewhere without behavioral disturbance; F02.80 - Dementia in other diseases classified elsewhere without behavioral disturbance (7) Parkinson's disease Code(s): G20 - PARKINSON'S DISEASE Status: Chronic (8) Chronic kidney disease, stage III (moderate) Status: Chronic (9) HTN (hypertension) Code(s): I10 - ESSENTIAL (PRIMARY) HYPERTENSION Status: Chronic Comment: add PRN anti hypertensives. PO meds on hold - Plan continue antibiotics, out of bed/ambulate, DVT proph w/SCDs ready to be transitioned to next level of care. -: rehab as per family reuqest when arranged -: Pleasure feeds w risk aspiration per family request -: HD stable. -: Cx negative so far * . Review of Systems - Review of Systems Other: can not be obtained due to advanced dementia - Medications/Allergies Allergies/Adverse Reactions: Allergies Allergy/AdvReac Type Severity Reaction Status Date / Time aspirin [From Aggrenox] Allergy Verified 05/02/14 01:52 dipyridamole [From Aggrenox] Allergy Verified 05/02/14 01:52 fentanyl Allergy Verified 05/02/14 01:52 hydrocodone bitartrate Allergy Verified 05/02/14 01:52 [From Vicodin] niacin Allergy Verified 05/02/14 01:52 Penicillins Allergy Verified 05/02/14 01:52 Medications: Current Medications Acetaminophen (Tylenol) 650 mg PO Q4H PRN PRN Reason: Headache/Fever or Pain Amlodipine Besylate (Norvasc) 10 mg PO DAILY [facility] Last Admin: 05/24/18 08:32 Dose: Not Given Enoxaparin Sodium (Lovenox) 40 mg SC 0900 [facility] Last Admin: 05/24/18 08:32 Dose: 40 mg Ferrous Sulfate (Feosol) 325 mg PO DAILY [facility] Last Admin: 05/24/18 08:31 Dose: 325 mg Gabapentin (Neurontin) 400 mg PO HS [facility] Last Admin: 05/23/18 20:18 Dose: 400 mg Hydralazine HCl (Apresoline) 5 mg SLOW IVP Q4H PRN PRN Reason: SBP>160 Last Admin: 05/21/18 05:51 Dose: 5 mg Iron/Minerals/Multivitamins (Theragran M) 1 tab PO DAILY [facility] Last Admin: 05/24/18 08:31 Dose: 1 tab Levofloxacin (Levaquin) 500 mg PO 0600 [facility] Miscellaneous Medication (Pharmacy To Dose) 0 each IVPB PRN PRN PRN Reason: VANC Pharmacy to Dose Oxybutynin Chloride (Ditropan) 5 mg PO HS [facility] Last Admin: 05/23/18 20:25 Dose: 5 mg Sertraline HCl (Zoloft) 100 mg PO HS [facility] Last Admin: 05/23/18 20:18 Dose: 100 mg Sodium Chloride (Flush - Normal Saline) 10 ml IVF Q12HR [facility] Last Admin: 05/24/18 08:32 Dose: 10 ml Sodium Chloride (Flush - Normal Saline) 10 ml IVF PRN PRN PRN Reason: Saline Flush Sterile Water (Water For Injection) 10 ml FS Q8H PRN PRN Reason: TO RECONSTITUTE ZIPRASIDONE Last Admin: 05/22/18 16:03 Dose: 10 ml Ziprasidone (Geodon) 10 mg IM Q8H PRN PRN Reason: Agitation Last Admin: 05/22/18 16:02 Dose: 10 mg
--- NOTE | 2018-05-24 15:09 | PQF ---
CLINICAL DOCUMENTATION IMPROVEMENT CLARIFICATION FORM: ICD-10 Updated PLEASE DO AN ADDENDUM TO THE PROGRESS NOTE WITH ANY DOCUMENTATION UPDATES OR ADDITIONS AND CARRY THROUGH TO DC SUMMARY. THANK YOU. Date: 05/24/18 ATTN: DR. ROJAS Please exercise your independent, professional judgment in responding to the clarification form. Clinical indicators are provided on the bottom of this form for your review Please check appropriate box(s): [ ] Protein Calorie Malnutrition: [ ] Mild [ X ] Moderate [ ] Severe [ ] Other Malnutrition (please specify) __ [ ] Underweight without malnutrition [ ] Cachexia [ ] Other diagnosis [ ] Unable to determine In addition, please specify: Present on Admission (POA): [X ] Yes [ ] No [ ] Unable to determine CLINICAL INDICATORS - SIGNS / SYMPTOMS / LABS DIETARY NOTE 05/19: "REASON FOR ASSESSMENT: WEIGHT LOSS" "KCAL AND G PROTEIN NOT MET" DIETARY NOTE 05/22: "MODERATE-SEVERE MUSCLE WASTING NOTED IN TEMPLES AND CLAVICLE " BMI 18.2 RISKS: DYSPHAGIA DEMENTIA TREATMENT: DIETARY CONSULT NUTRITIONAL SUPPLEMENTS PER DIETARY RECOMMENDATIONS Moderate Malnutrition (in acute illness) Energy Intake: <75% of estimated energy requirement for > 7 days Weight Loss: 1-2%/1 week; 5%/ 1 month; 7.5%/3 months Other: mild body fat loss; mild muscle mass loss; mild fluid accumulation; Severe Malnutrition (in acute illness) Energy Intake: < 50% of estimated energy requirement for > 5 days Weight Loss: >1-2%/1 week; >5%/1 month; >7.5%/3 months Other: moderate body fat loss; moderate muscle mass loss; moderate- severe fluid accumulation; measurably reduced loan interviewer strength Moderate Malnutrition (in chronic illness) [employer]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: <75% of estimated energy requirement for >1 month Weight Loss: 5%/1 month; 7.5%/3 months; 10%/6 months; 20%/1 year Other: mild body fat loss; mild muscle mass loss; mild fluid accumulation Severe Malnutrition (in chronic illness) Energy Intake: <75% of estimated energy requirement for >1 month Weight Loss: >5%/1 month; >7.5%/3 months; >10%/6 months; >20%/1 year Other: severe body fat loss; severe muscle mass loss; severe fluid accumulation ; measurably reduced loan interviewer strength (This form is maintained as a part of the permanent medical record) 2014 [employer], [employer]. All Rights Reserved [email or web address] Office: [phone] [facility]
[2018-05-24] MEDS: Oxybutynin 5 MG TAB PO SCH (20:18)
[2018-05-24] MEDS: Gabapentin 100 MG CAP PO SCH (20:19)
[2018-05-25 04:30] LABS: Anion Gap 14 mmol/L (10-20); BUN (Urea Nitrogen) 15 mg/dL (8.4-25.7); Calc. Creatinine Clearance 40 mL/min (70-130); Calcium 9.1 mg/dL (7.8-10.44); Carbon Dioxide 20 mmol/L (23-31); Chloride 111 mmol/L (98-107); Estimated GFR-MDRD 70; Glucose 89 mg/dL (83-110); Potassium 3.7 mmol/L (3.5-5.1); Sodium 141 mmol/L (136-145)
[2018-05-25] MEDS: Enoxaparin Sodium 40 MG/0.4 ML SYRINGE SC SCH (08:24)
[2018-05-25] MEDS: Amlodipine 10 MG TAB PO SCH (08:24)
[2018-05-25] MEDS: Ferrous Sulfate 325 MG TAB PO SCH (08:24)
[2018-05-25] MEDS: Multivitamin W/ Minerals 1 TAB PO SCH (08:24)
[2018-05-25 12:30] VITALS: BP 131/71; TEMP 97.6
--- NOTE | 2018-05-26 00:30 | DIS ---
DATE OF ADMISSION: 05/19/2018 DATE OF DISCHARGE: 05/24/2018 CONDITION AT THE TIME OF DISCHARGE: Stable and improved. DISCHARGE DISPOSITION: [facility] bed. DISCHARGE MEDICATIONS: Sertraline 100 mg daily, vitamin D3 daily, Ditropan 5 mg daily, Neurontin 400 mg daily, multivitamin daily, eyedrops daily, ferrous sulfate 325 mg daily, omega 3 fish oil daily, memantine/donepezil 1 capsule daily, Geodon 10 mg every 8 hours as needed, Norvasc 10 mg daily, aceta minophen 650 mg every 4 hours as needed, levofloxacin 500 mg p.o. daily for 7 more days. DISCHARGE DIAGNOSES: 1. Healthcare-associated pneumonia. 2. Hyponatremia, resolved. 3. Thrombocytopenia, resolved. 4. Acute kidney injury, resolved. 5. Chronic dysphagia, on pureed and thickened diet as per the speech therapist's recommendations. 6. Alzheimer's dementia. 7. Parkinson's disease. 8. Hypertension. HISTORY OF PRESENTING ILLNESS: Mr. Maloney is an 88-year-old [facility] resident with advanced dem entia, CHF, COPD, CVA, chronic kidney disease and chronic thrombocytopenia, who presented to the [facility] for complaints of hypoxia and worsening altered mental status. There was question of poss ible sepsis. Upon presentation, his lactic acid was 4, his anion gap was 19 and creatinine was 1.86. Chest x-ray was concerning for some free air, so he underwent a CT scan of the abdomen and pelvis, which did not have any evidence of free intraperitoneal air. There was some question of pulmonary va scular congestion and infiltrate in the right lower lobe, possibly healthcare-associated pneumonia, s o he was admitted for further evaluation. Urinalysis also showed mild urinary tract infection. He w as started on gentle IV fluid hydration. Please see admission history and physical for further detai ls. HOSPITAL COURSE: Blood culture remained negative x2. He had significant improvement gradually and w as remained hemodynamically stable. Neutrophils were 85%, which resolved to 69%. He had no leukocyt osis. His renal function improved to normal with a GFR of 70. He was initially treated with IV anti biotics, which were later changed to oral as all the cultures were negative. He had some behavioral issues in the beginning with altered mental status, but it quickly cleared and he was back to his bas adolfo, which is mumbling and not really following commands, but as of this morning, he was making int elligent conversations, but it was very difficult for me to understand him because of the garbled spe ech he has at baseline. The patient was evaluated by speech therapist who recommended that he is a very high risk of aspirati on. His family was contacted. His 3 children, who are biological children, are not involved in his care, but with the help of the palliative care team, we were able to track them down. They deferred all of his care to the step-children, who were present in the hospital almost on a daily basis. A mu tual decision was made and it was decided because the patient is a DNR, feeding tube is not appropria te in the advanced age and advanced dementia patient. He was started on pleasure feeds as per speech therapist's recommendations. He is discharged to [facility] bed for rehabilitation as per braulio pisano's request. He will get OT, PT and speech therapist evaluation over there as well. He was seen and examined prior to discharge. PHYSICAL EXAMINATION: VITAL SIGNS: This morning, temperature 97.6, pulse of 60, respirations 18, saturating 93% on room ai r, blood pressure 131/71. GENERAL: No acute distress, awake, alert, oriented x3. He is able to follow simple commands and ans wer questions simply, but in the garbled language, but is making sense. HEENT: He was noticed to have some oral thrush and he started on nystatin swish and swallow. Otherw ise, dry mucous membrane was noticed. CHEST: Clear to auscultation bilaterally without any wheezing, rales or rhonchi. CARDIOVASCULAR: Rate and rhythm is regular without any murmur, rubs or gallops. He is being discharged to a swing bed for rehabilitation. Total time spent in the discharge 32 minutes.
--- NOTE | 2018-05-28 08:44 | PQF ---
CHRISTI MACDONALD RICHA MD [id number] CLINICAL DOCUMENTATION CLARIFICATION FORM: POST DISCHARGE DATE: 05/28/2018 ATTN: Please exercise your independent, professional judgment in responding to the clarification form. Clinical indicators are provided on the bottom of this form for your review Please check appropriate box(s) to clarify if the following diagnosis has been ruled in or ruled out: Sepsis Ruled out [ ] Ruled in diagnosis [ ] Continue to treat [ ] Resolved [ ] Ruled out diagnosis [X ] Cannot rule out diagnosis [ ] Other diagnosis (please specify) [ ] Unable to determine In addition, please specify: Present on Admission (POA): [ ] Yes [ ] No [ ] Unable to determine For continuity of documentation, please document condition throughout progress notes and discharge summary. Thank You. CLINICAL INDICATORS - SIGNS / SYMPTOMS / LABS Per H&P: Sepsis. Per 05/19 Hospitalist PN: Follow up for aspiration pneumonia, severe sepsis, dementia. Per discharge summary: There was a question of possible sepsis. Upon presentation his lactic acid was 4, his anion gap was 19 and creatinine was 1.86. RISK FACTORS (per progress notes) Healthcare pneumonia. Urinary tract infection. TREATMENTS (per progress notes) IV Vancomycin. IV fluids. (This form is maintained as a part of the permanent medical record) 2014 [employer], [employer]. All Rights Reserved [email or web address] [email or web address] [phone] [email or web address]
== END 2018-05-25 12:28 | disposition swing bed (61) | DRG 194 ==
LOC: ERS 20:03 → IMCU/EMU 23:34 → ERHOLD 05-19 01:04 → 2NO 05-19 01:43 → T4-B 05-20 15:40
PROVIDERS: ADMIT Internal Medicine; ATTEND Internal Medicine
DX: J18.9 Pneumonia, unspecified organism (principal); N39.0 Urinary tract infection, site not specified; E87.0 Hyperosmolality and hypernatremia; E87.2 Acidosis; N17.9 Acute kidney failure, unspecified; I13.0 Hypertensive heart and chronic kidney disease with heart failure and stage 1 through stage 4 chronic kidney disease, or unspecified chronic kidney disease; E44.0 Moderate protein-calorie malnutrition; Z68.1 Body mass index [BMI] 19.9 or less, adult; Z51.5 Encounter for palliative care; Z66 Do not resuscitate; E87.6 Hypokalemia; E86.0 Dehydration; J44.9 Chronic obstructive pulmonary disease, unspecified; F41.9 Anxiety disorder, unspecified; F32.9 Major depressive disorder, single episode, unspecified; D69.6 Thrombocytopenia, unspecified; G30.9 Alzheimer's disease, unspecified; F02.80 Dementia in other diseases classified elsewhere, unspecified severity, without behavioral disturbance, psychotic disturbance, mood disturbance, and anxiety; G20 Parkinson's disease; I50.9 Heart failure, unspecified; N18.3 Chronic kidney disease, stage 3 (moderate); Z88.6 Allergy status to analgesic agent; Z88.5 Allergy status to narcotic agent; Z88.0 Allergy status to penicillin; Z88.8 Allergy status to other drugs, medicaments and biological substances; Z79.899 Other long term (current) drug therapy; Z95.0 Presence of cardiac pacemaker; Y95 Nosocomial condition
CPT/HCPCS: 36415; 80048; 80202; 83605; 83735; 85025; 96365; 96366; 96367; A4216; G8978-GP-CM; G8979-GP-CL; G8996-GN-CN; G8997-GN-CN; J0360; J0456; J0692; J1630; J1644; J1650; J2270; J3370; J3486; J7050